=== PATIENT | female | born 1980 | race Caucasian/White ===

== ENCOUNTER 2018-10-19 16:44 | Emergency (ER) | payer BC ==
--- NOTE | 2018-10-19 17:34 | RAD REPORT ---
EXAM DESCRIPTION: RAD - Chest Single View - 10/19/2018 5:22 pm CLINICAL HISTORY: CHEST PAIN Chest pain. COMPARISON: CHEST PA AND LAT 2 VIEW dated 12/19/2010 FINDINGS: Portable technique limits examination quality. The lungs are grossly clear. The heart is normal in size. No displaced fractures. IMPRESSION: No acute intrathoracic process suspected.
[2018-10-19] MEDS ORDERED: NA CHLORIDE 0.9% 1,000 ML ONE (17:36)
[2018-10-19 18:11] LABS: Protime INR 1.07
[2018-10-19 18:12] LABS: Absolute Lymphocytes (CBC) 2.2 K/uL (0.7-4.9); Absolute Monocytes 0.6 K/uL (0.1-1.3); Absolute Neutrophil 6.7 K/uL (1.8-8.0); Basophils % 0.6 % (0-1.3); Eosinophils % 1.1 % (0-4.4); Lymphocytes % 23.2 % (15.3-44.8); MPV 8.2 fL (7.6-11.3); Monocytes % 6.2 % (3.3-12.3)
[2018-10-19 18:22] LABS: ALT/SGPT 37 U/L (12-78); AST/SGOT 20 U/L (15-37); Albumin 4.1 g/dL (3.4-5.0); Alkaline Phosphatase 112 U/L (45-117); BUN Blood Urea Nitrogen 15 mg/dL (7-18); Bicarbonate 28 mmol/L (21-32); Bilirubin Direct < 0.1 mg/dL (0-0.2); Bilirubin Total 0.3 mg/dL (0.2-1.0); Glucose Level 100 mg/dL (74-106); Magnesium 2.1 mg/dL (1.8-2.4); NT PRO-BNP 7 pg/mL (<125); Protein, Total 8.7 g/dL (6.4-8.2); Sodium Level 139 mmol/L (136-145); Troponin (Emerg Dept Use Only) < 0.02 ng/mL (0.0-0.045)
[2018-10-19] MEDS ORDERED: CLINDAMYCIN 900MG/D5W 900 MG/50 ML IVPB IV ONE (19:30)
[2018-10-19 20:03] LABS: Urine Blood TRACE (NEG); Urine Glucose NEGATIVE (NEG); Urine Protein NEGATIVE (NEG); Urine Specific Gravity <1.005 (1.005-1.030); Urine pH 5.5 (5.0-7.0)
--- NOTE | 2018-10-19 21:09 | EDPHYS ---
Physician Documentation [facility] Name: Marcus Chen Age: 38 yrs Sex: Female : 1980 Arrival Date: 10/19/2018 Time: 16:49 Bed 15 Private MD: Hugh Walton ED Physician Juan Titus HPI: 10/19 17:30 This 38 yrs old Female presents to ER via Wheelchair with complaints of Chest snw Pain, Shortness Of Breath. 17:30 Onset: The symptoms/episode began/occurred gradually, 3 day(s) ago, and became worse snw today, and became persistent. Associated signs and symptoms: Pertinent positives: chest pain, shortness of breath, occasional mucus like stools intermittently. It is unknown whether or not the patient has had similar symptoms in the past. 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 - Social history:: Smoking status: Patient/guardian denies using tobacco. - Ebola Screening: : No symptoms or risks identified at this time. ROS: 17:27 Constitutional: Negative for fever, chills, and weight loss, Eyes: Negative for injury, snw pain, redness, and discharge, ENT: Negative for injury, pain, and discharge, Neck: Negative for injury, pain, and swelling. 17:27 Back: Negative for injury and pain, : Negative for injury, bleeding, discharge, and swelling, MS/Extremity: Negative for injury and deformity, Skin: Negative for injury, rash, and discoloration, Neuro: Negative for headache, weakness, numbness, tingling, and seizure. 17:27 Cardiovascular: Positive for chest pain, of the chest, palpitations. 17:27 Respiratory: Positive for shortness of breath, at rest. 17:27 Abdomen/GI: Positive for large mucus plug like stool, denies blood, intermittently x 3 days. 17:27 Psych: Positive for feeling panicked at times. Exam: 17:29 Constitutional: This is a well developed, well nourished patient who is awake, alert, snw and in no acute distress. Head/Face: Normocephalic, atraumatic. Eyes: Pupils equal round and reactive to light, extra-ocular motions intact. Lids and lashes normal. Conjunctiva and sclera are non-icteric and not injected. Cornea within normal limits. Periorbital areas with no swelling, redness, or edema. ENT: Nares patent. No nasal discharge, no septal abnormalities noted. Tympanic membranes are normal and external auditory canals are clear. Oropharynx with no redness, swelling, or masses, exudates, or evidence of obstruction, uvula midline. Mucous membranes moist. Neck: Trachea midline, no thyromegaly or masses palpated, and no cervical lymphadenopathy. Supple, full range of motion without nuchal rigidity, or vertebral point tenderness. No Meningismus. Chest/axilla: Normal chest wall appearance and motion. Nontender with no deformity. No lesions are appreciated. Cardiovascular: Regular rate and rhythm with a normal S1 and S2. No gallops, murmurs, or rubs. Normal PMI, no JVD. No pulse deficits. Respiratory: Lungs have equal breath sounds bilaterally, clear to auscultation and percussion. No rales, rhonchi or wheezes noted. No increased work of breathing, no retractions or nasal flaring. Abdomen/GI: Soft, non-tender, with normal bowel sounds. No distension or tympany. No guarding or rebound. No evidence of tenderness throughout. Obese Back: No spinal tenderness. No costovertebral tenderness. Full range of motion. Skin: Warm, dry with normal turgor. Normal color with no rashes, no lesions, and no evidence of cellulitis. MS/ Extremity: Pulses equal, no cyanosis. Neurovascular intact. Full, normal range of motion. Neuro: Awake and alert, GCS 15, oriented to person, place, time, and situation. Cranial nerves II-XII grossly intact. Motor strength 5/5 in all extremities. Sensory grossly intact. Cerebellar exam normal. Normal gait. Psych: Awake, alert, with orientation to person, place and time. Behavior, mood, and affect are within normal limits. Vital Signs: 16:52 BP 144 / 88; Pulse 97; Resp 16; Temp 98.6; Pulse Ox 98% on R/A; Weight 118.39 kg; la1 Height 5 ft. 6 in. (167.64 cm); Pain 2/10; 17:26 BP 124 / 86; Pulse 80; Resp 18 S; Pulse Ox 99% on R/A; Pain 0/10; aa5 18:00 BP 129 / 80; Pulse 79; Resp 16 S; Pulse Ox 99% on R/A; Pain 0/10; aa5 19:22 BP 116 / 73; Pulse 74; Resp 21; Pulse Ox 98% on R/A; tl2 20:17 BP 112 / 72; Pulse 74; Resp 15; Pulse Ox 99% on R/A; tl2 21:31 BP 121 / 65; Pulse 70; Resp 18; Pulse Ox 98% on R/A; tl2 21:50 BP 126 / 69 LA (auto/lg); Pulse 70; Resp 17; Temp 99.4(O); Pulse Ox 100% ; jp3 16:52 Body Mass Index 42.13 (118.39 kg, 167.64 cm) la1 MDM: 17:07 Patient medically screened. [place] 21:10 Data reviewed: vital signs, nurses notes. Data interpreted: Pulse oximetry: on room air snw is 99 %. Interpretation: normal. Counseling: I had a detailed discussion with the patient and/or guardian regarding: the historical points, exam findings, and any diagnostic results supporting the discharge/admit diagnosis, lab results, the need for outpatient follow up, to return to the emergency department if symptoms worsen or persist or if there are any questions or concerns that arise at home. Special discussion: Based on the patient's history, exam, and Dx evaluation, there is no indication for emergent intervention or inpatient Tx. It is understood by the patient/guardian that if the Sx's persist or worsen they need to return immediately for re-evaluation. Based on the patient's Hx, exam, and Dx evaluation, there is no indication for emergent surgery or inpatient Tx. It is understood by the patient/guardian that if the Sx's persist or worsen they need to return immediately for re-evaluation. Based on the history and exam findings, there is no indication for further emergent testing or inpatient evaluation. I discussed with the patient/guardian the need to see the pediatric physician for further evaluation of the symptoms. I discussed with the patient/guardian the need to see the primary care provider for further evaluation of the symptoms. 10/19 17:04 Order name: Basic Metabolic Panel; Complete Time: 18:32 snw 10/19 17:04 Order name: CBC with Diff; Complete Time: 18:32 snw 10/19 17:04 Order name: LFT's; Complete Time: 18:32 snw 10/19 17:04 Order name: Magnesium; Complete Time: 18:32 snw 10/19 17:04 Order name: NT PRO-BNP; Complete Time: 18:32 snw 10/19 17:04 Order name: PT-INR; Complete Time: 18:32 snw 10/19 17:04 Order name: Troponin (emerg Dept Use Only); Complete Time: 18:32 snw 10/19 17:12 Order name: TSH; Complete Time: 18:32 snw 10/19 17:13 Order name: TS; Complete Time: 19:18 snw 10/19 19:37 Order name: ABO/RH no charge; Complete Time: 19:46 EDMS 10/19 19:57 Order name: Urine Dipstick--Ancillary (enter results) eb 10/19 20:07 Order name: Troponin (emerg Dept Use Only): draw \T\ 2030; Complete Time: 21:08 tl2 10/19 20:07 Order name: Test, Serum; Complete Time: 21:08 tl2 10/19 17:04 Order name: XRAY Chest (1 view); Complete Time: 17:38 snw 10/19 17:04 Order name: EKG; Complete Time: 17:05 snw 10/19 17:04 Order name: Cardiac monitoring; Complete Time: 17:19 snw 10/19 17:04 Order name: EKG - Nurse/Tech; Complete Time: 17:19 snw 10/19 17:04 Order name: IV Saline Lock; Complete Time: 17:46 snw 10/19 17:04 Order name: Labs collected and sent; Complete Time: 17:46 snw 10/19 17:04 Order name: O2 Per Protocol; Complete Time: 17:19 snw 10/19 17:04 Order name: O2 Sat Monitoring; Complete Time: 17:19 snw 10/19 17:04 Order name: Urine Test (obtain specimen); Complete Time: 19:22 snw 10/19 19:56 Order name: [place]. Order: repeat EKG and trop at 2030; Complete Time: 20:59 snw Administered Medications: 17:49 Drug: NS 0.9% 1000 ml Route: IV; Rate: 125 ml/hr; Site: right antecubital; aa5 22:00 Follow up: IV Status: Completed infusion; IV Intake: 500ml tl2 Disposition: 10/19/18 21:09 Discharged to Home. Impression: Chest pain, unspecified. - Condition is Stable. - Discharge Instructions: Nonspecific Chest Pain, Gastroesophageal Reflux Disease, Adult, Aspirin and Your Heart, Fat and Cholesterol Restricted Diet, [id number]. - Prescriptions for Protonix 40 mg Oral Tablet - take 1 tablet by ORAL route once daily; 30 tablet. - Work release form, Medication Reconciliation Form, Thank You Letter, Antibiotic Education, Prescription Opioid Use form. - Follow up: Hugh Walton MD; When: 2 - 3 days; Reason: Recheck today's complaints, Continuance of care, Re-evaluation by your physician. Follow up: Emergency Department; When: As needed; Reason: Worsening of condition. Addendum: 10/22/2018 08:42 Co-signature as Attending Physician, Juan Titus MD I agree with the assessment and [place] plan of care. Signatures: Dispatcher [employer] [facility] [place] Juan Titus MD MD cha Therrien, Shelly, PAPER HANDLER-C PAPER HANDLER-Csnw Yanni Zeng RN RN aa5 Yohan Slade RN RN la1 Grazyna Morrow RN RN tl2 Corrections: (The following items were deleted from the chart) 10/19 20:01 19:58 URINE --ANCILLARY+UC.LAB.BRZ ordered. [facility] 22:00 21:09 10/19/2018 21:09 Discharged to Home. Impression: Chest pain, unspecified. tl2 Condition is Stable. Forms are Medication Reconciliation Form, Thank You Letter, Antibiotic Education, Prescription Opioid Use. Follow up: Hugh Walton; When: 2 - 3 days; Reason: Recheck today's complaints, Continuance of care, Re-evaluation by your physician. Follow up: Emergency Department; When: As needed; Reason: Worsening of condition. snw
--- NOTE | 2018-10-19 21:09 | ER ---
Nurse's Notes [facility] Name: Marcus Chen Age: 38 yrs Sex: Female : 1980 Arrival Date: 10/19/2018 Time: 16:49 Bed 15 Private MD: Hugh Walton Diagnosis: Chest pain, unspecified Presentation: 10/19 16:50 Presenting complaint: Patient states: Chest pain and SOB. Chest pain on and off for 2 la1 days. Transition of care: patient was not received from another setting of care. Onset of symptoms was October 19, 2018. Risk Assessment: Do you want to hurt yourself or someone else? Patient reports no desire to harm self or others. Initial Sepsis Screen: Does the patient meet any 2 criteria? No. Patient's initial sepsis screen is negative. Does the patient have a suspected source of infection? No. Patient's initial sepsis screen is negative. Care prior to arrival: None. 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 - Social history:: Smoking status: Patient/guardian denies using tobacco. - Ebola Screening: : No symptoms or risks identified at this time. Screenin:23 Abuse screen: Denies threats or abuse. Nutritional screening: No deficits noted. tl2 Tuberculosis screening: No symptoms or risk factors identified. Fall Risk None identified. Assessment: 17:10 General: Appears comfortable, Behavior is calm, cooperative. Pain: Complains of pain in aa5 mid-sternal area Pain does not radiate. Pain currently is 0 out of 10 on a pain scale. Quality of pain is described as pressure, Pain began 2-3 days ago. Is episodic, lasting a few seconds. Neuro: Level of Consciousness is awake, alert, obeys commands, Oriented to person, place, time, situation. Cardiovascular: Heart tones S1 S2 present Rhythm is sinus rhythm. Respiratory: Airway is patent Respiratory effort is even, unlabored, Respiratory pattern is regular, symmetrical, Breath sounds are clear bilaterally. Denies cough, shortness of breath. GI: Patient currently denies nausea, vomiting. : No signs and/or symptoms were reported regarding the genitourinary system. EENT: No signs and/or symptoms were reported regarding the EENT system. Derm: Skin is pink, warm \T\ dry. Musculoskeletal: Range of motion: intact in all extremities. 18:00 Reassessment: Patient is alert, oriented x 3, equal unlabored respirations, skin aa5 warm/dry/pink. Patient denies pain at this time. 19:15 General: Appears in no apparent distress. comfortable, Behavior is calm, cooperative, tl2 appropriate for age. Pain: Denies pain. Neuro: Level of Consciousness is awake, alert, obeys commands, Oriented to person, place, time, Appropriate for age. Cardiovascular: Rhythm is sinus rhythm. Respiratory: Airway is patent Respiratory effort is even, unlabored, Respiratory pattern is regular, symmetrical. GI: No signs and/or symptoms were reported involving the gastrointestinal system. : No signs and/or symptoms were reported regarding the genitourinary system. Derm: Skin is pink, warm \T\ dry. 20:00 Reassessment: Patient appears in no apparent distress at this time. Patient and/or tl2 family updated on plan of care and expected duration. Pain level reassessed. Patient is alert, oriented x 3, equal unlabored respirations, skin warm/dry/pink. will repeat Trop and EKG at 2030. 21:00 Reassessment: Patient appears in no apparent distress at this time. Patient and/or tl2 family updated on plan of care and expected duration. Pain level reassessed. Patient is alert, oriented x 3, equal unlabored respirations, skin warm/dry/pink. 21:59 Reassessment: Patient appears in no apparent distress at this time. Patient and/or tl2 family updated on plan of care and expected duration. Pain level reassessed. Patient is alert, oriented x 3, equal unlabored respirations, skin warm/dry/pink. pt verbalized understanding of discharge instructions, need for follow up and prescription usage. Vital Signs: 16:52 BP 144 / 88; Pulse 97; Resp 16; Temp 98.6; Pulse Ox 98% on R/A; Weight 118.39 kg; la1 Height 5 ft. 6 in. (167.64 cm); Pain 2/10; 17:26 BP 124 / 86; Pulse 80; Resp 18 S; Pulse Ox 99% on R/A; Pain 0/10; aa5 18:00 BP 129 / 80; Pulse 79; Resp 16 S; Pulse Ox 99% on R/A; Pain 0/10; aa5 19:22 BP 116 / 73; Pulse 74; Resp 21; Pulse Ox 98% on R/A; tl2 20:17 BP 112 / 72; Pulse 74; Resp 15; Pulse Ox 99% on R/A; tl2 21:31 BP 121 / 65; Pulse 70; Resp 18; Pulse Ox 98% on R/A; tl2 21:50 BP 126 / 69 LA (auto/lg); Pulse 70; Resp 17; Temp 99.4(O); Pulse Ox 100% ; jp3 16:52 Body Mass Index 42.13 (118.39 kg, 167.64 cm) la1 ED Course: 16:49 Patient arrived in ED. es 16:49 Hugh Walton MD is Private Physician. es 16:51 Triage completed. la1 16:52 Arm band placed on left wrist. la1 16:58 Yanni Zeng, GREGOR is Primary Nurse. aa5 17:01 [facility] Wagner [facility]C [facility] snw 17:02 Juan Titus MD is Attending Physician. snw 17:10 No provider procedures requiring assistance completed. aa5 17:20 EKG done, by ED staff, reviewed by Salome ANDRADE. aa5 17:22 XRAY Chest (1 view) In Process Unspecified. EDMS 17:25 X-ray completed. Portable x-ray completed in exam room. Patient tolerated procedure la2 well. 17:40 Initial lab(s) drawn, by nm, sent to lab. T\T\S collected, blood band applied to patient. jp3 Inserted saline lock: 20 gauge in right antecubital area, using aseptic technique. Blood collected. 17:48 TS Sent. jp3 17:48 TSH Sent. jp3 17:48 Basic Metabolic Panel Sent. jp3 17:48 CBC with Diff Sent. jp3 17:48 LFT's Sent. jp3 17:48 Magnesium Sent. jp3 17:48 NT PRO-BNP Sent. jp3 17:48 PT-INR Sent. jp3 17:48 Troponin (emerg Dept Use Only) Sent. jp3 19:05 Report given to GREGOR Geronimo. aa5 19:15 Urine collected: clean catch specimen, clear, isamar colored, Amount Voided: 90mL. jp3 19:23 Patient has correct armband on for positive identification. Placed in gown. Bed in low tl2 position. Call light in reach. Side rails up X 1. Adult w/ patient. alarm security or surveillance monitor on. Pulse ox on. NIBP on. 19:23 IV is patent, with fluids infusing freely. Patient maintains SpO2 saturation greater tl2 than 95% on room air. 20:18 Test, Serum Sent. tl2 20:59 Troponin (emerg Dept Use Only): draw \T\ 2030 Sent. tl2 21:00 EKG done, by ED staff, reviewed by Salome ANDRADE. jp3 21:08 Hugh Walton MD is Referral Physician. snw 21:59 IV discontinued, intact, bleeding controlled, No redness/swelling at site. Pressure tl2 dressing applied. Administered Medications: 17:49 Drug: NS 0.9% 1000 ml Route: IV; Rate: 125 ml/hr; Site: right antecubital; aa5 22:00 Follow up: IV Status: Completed infusion; IV Intake: 500ml tl2 Intake: 22:00 IV: 500ml; Total: 500ml. tl2 Outcome: 21:09 Discharge ordered by . snw 21:59 Discharged to home ambulatory, with family. tl2 21:59 Condition: stable 21:59 Discharge instructions given to patient, family, Instructed on discharge instructions, follow up and referral plans. medication usage, Demonstrated understanding of instructions, follow-up care, medications, Prescriptions given X 1. 22:00 Patient left the ED. tl2 Signatures: Dispatcher [employer] EDSalome Armando FNP-C FNP-Alejandra Cruz Audri RN RN aa5 Yohan Slade RN RN la1 Grazyna Morrow RN RN tl2 Malathi Douglas2 Chin Keller jp3
--- NOTE | 2018-10-20 10:07 | EKG ---
Test Date: 2018-10-19 Test Time: 17:14:27 [place] Attendant: MART MEASUREMENT RESULTS: Intervals: Rate: 81 MA: 154 QRSD: 72 QT: 356 QTc: 413 [place]: P: 34 MA: 154 QRS: -1 T: 12 INTERPRETIVE STATEMENTS: Normal sinus rhythm Normal ECG Compared to ECG 12/19/2010 09:08:00 Sinus arrhythmia no longer present Electronically Signed On 10-20-18 10:05:37 CDT by Navid Jimenes
--- NOTE | 2018-10-20 10:07 | EKG ---
Test Date: 2018-10-19 Test Time: 21:02:12 [place] Operator: SIERRA MEASUREMENT RESULTS: Intervals: Rate: 69 CA: 164 QRSD: 72 QT: 380 QTc: 407 [place]: P: 25 CA: 164 QRS: -10 T: 20 INTERPRETIVE STATEMENTS: Normal sinus rhythm Normal ECG Compared to ECG 10/19/2018 17:14:27 No significant changes Electronically Signed On 10-20-18 10:05:25 CDT by Navid Jimenes
== END 2018-10-19 22:00 | disposition home or self-care (01) ==
LOC: ER 16:44
DX: R07.9 Chest pain, unspecified (principal); D64.9 Anemia, unspecified
CPT/HCPCS: 36415; 71045; 80048; 80076; 81003; 83735; 83880; 84443; 84484; 84703; 85025; 85610; 86850; 86900; 86901; 93005; 96360; 96361; 99285; J7030